=== PATIENT | male | born 1985 | race Caucasian/White ===

== ENCOUNTER 2017-11-03 05:22 | Day surgery (SDC) | payer MEDICAID, SELFPAY ==
[2017-11-03] VITALS (9 sets, daily range): BP systolic 105–133; BP diastolic 68–82; PULSE 55–72; RESP 16; TEMP 36.8–36.9; O2SAT 99–100
--- NOTE | 2017-11-03 06:01 | PCM.HP.STD ---
Problem List (1) Rectal bleeding Status: Acute History of Present Illness Date of Admission: 11/03/17 The patient is a 32 year old M who was evaluated in the office September 22, 2017. At that point he was referred because of an episode of rectal bleeding. [place] that he had a significant amount of bright red blood in the commode. He has had some concerns about possible previous hemorrhoidal problems. Occasional tenderness. Feeling of fullness. He denies any family or personal history of colon polyps or colon cancer. He has never had a previous colonoscopy. He is a long-term cigarette smoker and he continues to smoke. He has had intermittent chronic constipation. Past Medical History Medical History: Medical History (Last Updated 09/22/17 @ 14:02 by Mague Mcknight) Rectal bleeding (Acute) K62.5 Hemorrhoid K64.9 Allergies amoxicillin [Amoxicillin] Allergy (Verified 09/22/17 14:06) Rash Home Medications: Ambulatory Orders Medication Instructions Recorded NK [NK] 09/22/17 Surgical History: Surgical History (Last Updated 09/22/17 @ 14:03 by Mague Mcknight) history wisdom teeth removal Smoking Status: Current every day smoker Review of Systems Constitutional: Denies: Anorexia HEENT: Denies: Difficulty Swallowing Cardiovascular: Denies: Chest Pain Respiratory: Denies: Cough Gastrointestinal: Reports: Constipation. Denies: Abdominal Pain Genitourinary: Denies: Dysuria Endocrine: Reports: Change in Body Habitus - 20 pound intentional weight loss VTE Information - Inpt Only VTE Present on Admission: No - Physical Exam General: Alert, Oriented x3, Cooperative, No apparent distress HEENT: Atraumatic Oral: Moist Mucosa Lungs: Clear to auscultation Cardiovascular: Regular rate, Regular Rhythm Abdomen: Bowel Sounds Present, Soft, Non Tender, Non-Distended Extremities: No clubbing Skin: No rashes Neurological: Cranial nerves II-XII grossly intact Psych/Mental Status: Normal Affect Assessment/Plan All Active Problems (Last Updated 09/22/17 @ 14:02 by Mague Mcknight) Rectal bleeding (Acute) I have recommended the patient a colonoscopy with possible biopsy or polypectomy is indicated. He has had an opportunity to ask and have questions answered. We have scheduled and will proceed as noted. JOHNNA Moncada Dr, M.D., F.A.C.S.
--- NOTE | 2017-11-03 08:07 | NURSING ---
PT. REPORTS BROWN, LIQUID STOOL UPON ARRIVAL. DR. MEDEL NOTIFIED. ORDER RECEIVED TO GIVE TAP WATER ENEMA. 500CC'S TAP WATER ENEMA INSTILLED INTO RECTUM.
--- NOTE | 2017-11-03 08:18 | OP.PCM_ITS ---
Problem List (1) Rectal bleeding Status: Acute Report of Operation Date of Procedure: 11/03/17 Pre-Operative Diagnosis: Rectal bleeding Post-Operative Diagnosis: Grade 3 internal and external hemorrhoids Surgery/Procedure Performed:: Colonoscopy Description of Surgical Findings:: Timeout informed consent was obtained. 32-year-old gentleman was taken to the endoscopy suite. He was placed in a left lateral decubitus position. Throughout the procedure in aliquots patient received total 100 mg Demerol and 3 mg of Versed is intravenous sedation. Inspection revealed very swollen internal and external hemorrhoids particularly left lateral. They were protruding and cannot be completely reduced. Digital rectal exam demonstrated 1 + smooth prostate. No mass lesions. Flexible colonoscope inserted the rectum and advanced readily through the left colon and transverse colon. The patient was placed supine and with transabdominal pressure the scope was advanced to the cecum. The cecum and ileocecal valve area was nicely inspected. Bowel prep was good. The scope was carefully withdrawn from the ascending transverse descending and sigmoid colon without abnormality. The scope was retroflexed within the rectum the anorectal verge inspected hemorrhoidal changes again noted. No active bleeding. Excess fluid and air was aspirated free the procedure was completed with the patient tolerating it well. Impression Grade 3 to grade 4 internal and external hemorrhoids. Likely source of rectal bleeding. This was the patient's first colonoscopy. Next screening colonoscopy at age 52. Recommendations will be made to the patient to consider a surgical hemorrhoidectomy. Medications were given at 0755. The scope was inserted 0759. The cecum was reached at 0805. The procedure was completed at 0812. Cc: Dr. Verenice Wills M.D., F.A.C.S. Type of Anesthesia:: IV Sedation
== END 2017-11-03 09:15 | disposition home or self-care (01) ==
LOC: EN 05:22 → AC 05:24
PROVIDERS: Visit Provider Surgery
PROC: 0DJD8ZZ Inspection of Lower Intestinal Tract, Via Natural or Artificial Opening Endoscopic (ICD-10-PCS; CPT 45378; principal; 2017-11-03 06:25)
DX: K64.2 Third degree hemorrhoids (principal); F17.210 Nicotine dependence, cigarettes, uncomplicated
CPT/HCPCS: 45378; 99152; 99153; J7120

== ENCOUNTER 2018-06-02 15:20 | Emergency (ER) | payer MEDICAID, SELFPAY ==
[2018-05-11 14:17] VITALS: BMI 23.1
[2018-06-02 15:21] VITALS: BP 117/66; PULSE 73; RESP 15; TEMP 36.8; O2SAT 98; BMI 23.2
[2018-06-02] MEDS: Diphth,Pertuss(Acell),Tet Vac 0.5 ML Vial IM (16:22)
--- NOTE | 2018-06-02 16:28 | ED.VIS.LOWEX ---
History of Present Illness Chief Complaint: Wound Check Informant: Patient Occurred: Today Mechanism/Context: Injury, - - Puncture wound plantar surface foot, right great toe Onset: Today Associated Symptoms: Negative for: Parasthesia, Weakness, Loss of Funtion Tetanus Immunization: Unknown Prior similar symptoms: No Recent Illness/Hospitalization: No Past Medical History - Allergies and Home Meds Allergies/Adverse Reactions: Allergies amoxicillin [Amoxicillin] Allergy (Verified 06/02/18 15:24) Rash Primary Care Physician: Verenice Denis DO [Primary Care Provider] - Prior records reviewed: No Past Medical History: None Surgical History: no surgical history Lives: With Family Smoking Status: Current every day smoker Drugs: None Review of Systems Musculoskeletal: Reports: Extremity Pain - Right great toe pain secondary to puncture wound. Denies: Myalgias, Arthralgias, Neck pain, Back pain, Swelling Neurological: Denies: Weakness, Parasthesia, Numbness Hematologic: Denies: Easy bruising, Easy bleeding Allergy: Reports: Uticaria. Denies: Swelling of the mouth, Swelling of the tongue Physical Exam Vital Signs/Narrative: Vital Signs Temp Pulse Resp BP Pulse Ox 06/02/18 15:21 98.2 F 73 15 117/66 98 - Extremity Exam Right Ankle: Negative for: Abrasion, Contusion, Deformity, Edema, Hematoma, Limited ROM, - Right Foot: Negative for: Abrasion, Contusion, Deformity, Edema, Hematoma, Limited ROM, - Right Toe: - - Puncture wound plantar surface right great toe with retained foreign body.. Negative for: Abrasion, Contusion, Deformity, Edema, Hematoma, Limited ROM General: Well nourished, Well developed Head: Normocephalic, Atraumatic Eyes: Perrl, EOMI Cardiovascular: Regular rate, Regular rhythm, No murmurs Respiratory: No distress Skin: Normal color, No rash, Trauma - Puncture wound plantar surface right great toe with retained foreign body Neurological: Alert, Oriented x3, Cranial nerves II-XII grossly intact, Normal Strength, Normal Sensation Psychological: Normal affect Diagnostic/Tx/Re-eval - Medical Decision Making Puncture wound plantar surface right great toe with retained foreign body. Patient was informed this would need to be removed. Procedures Procedure(s): The right great toe was anesthetized by digital block. The area with retained foreign body was scored with removal of the foreign body. The cord area was irrigated. Because he reports urticaria with amoxicillin he was given clindamycin. He was instructed to follow-up with his primary care provider in 2 days for wound check. ED Disposition - Plan for ED Patient: Disposition: Home or Assisted Living Diagnosis: Puncture wound of foot with foreign body Instructions: ED Foreign Body Soft Tissue Removed Prescriptions: Clindamycin HCl [Cleocin] 300 mg PO Q6H #20 capsule Referrals: Verenice Denis DO [Primary Care Provider] - 2 Days for wound check Additional Instructions: If you are unable to be seen by your primary care provider in 2 days please return to the emergency Department for reevaluation. There is a small incidence of infection. Keep wound clean and dry. Wear white cotton socks.
[2018-06-02 16:41] VITALS: PULSE 68; RESP 17; O2SAT 97
[2018-06-02] MEDS: Clindamycin HCl 150 MG Capsule 300 MG PO (16:43)
== END 2018-06-02 16:51 | disposition home or self-care (01) ==
PROVIDERS: Emergency Provider Emergency Medicine
DX: S91.141A Puncture wound with foreign body of right great toe without damage to nail, initial encounter (principal); X58.XXXA Exposure to other specified factors, initial encounter; Y93.9 Activity, unspecified; Y92.9 Unspecified place or not applicable; F17.200 Nicotine dependence, unspecified, uncomplicated
CPT/HCPCS: 90715; 99283

== ENCOUNTER 2022-10-19 11:46 | Emergency (ER) | payer MEDICAID, SELFPAY ==
[2022-10-19 11:48] VITALS: BP 121/73; PULSE 73; RESP 14; TEMP 36.3; O2SAT 100; BMI 23.7
--- NOTE | 2022-10-19 12:07 | RAD_ITS ---
HISTORY: FB. TECHNIQUE: XR Chest 1 View. COMPARISON: None. FINDINGS: CARDIOMEDIASTINAL BORDERS: Cardiac silhouette within normal limits in size. Mediastinal contour unremarkable. LUNGS: Radiographically clear. No metallic foreign body identified. PLEURA: No pleural effusion or pneumothorax seen. OSSEOUS STRUCTURES: Unremarkable. RAD/Chest 1 View IMPRESSION: No acute cardiopulmonary process identified. No metallic foreign body identified. Electronically Signed: Geetha Jacques MD at 12:43 EDT ,
--- NOTE | 2022-10-19 12:08 | EX.ED.DYSGE1 ---
HPI History of Present Illness Chief Complaint: Foreign Body Informant: patient Narrative Narrative: Patient presents secondary to concerns he may have swallowed a nail. He states that he was eating just prior to arrival. He bit into something that was a little hard but did not think much of it. A few bites later he bit into something hard again. He spit it out and noticed a small finishing nail that had fallen into the dove while he was cooking. He is now unsure if the first incident may have been another nail that he swallowed. He denies throat tightness or abdominal pain. [facility] History Anxiety Blood in stool Constipation Hemorrhoid Rectal bleeding Home Medications clindamycin HCl 300 mg capsule (Cleocin HCl) 300 mg PO Q6H ##20 06/02/18 [Rx Last Taken Unknown] Allergy/AdvReac Type Severity Reaction Status Date / Time amoxicillin [Amoxicillin] Allergy Rash Verified 10/19/22 11:49 Family History Mother Breast cancer Grandfather Diabetes Hypertension Heart disease CVA (cerebral vascular accident) Surgical History history wisdom teeth removal Hx of colonoscopy Social History Smoking Status: Current some day smoker tobacco type: cigarettes second hand exposure: Yes alcohol intake: current alcohol intake frequency: a few times a week substance use type: does not use caffeine: Yes frequency: 1-2 times per week ROS ROS ED Constitutional Constitutional ED: Denies chills or fever(s) Eyes Eyes: Denies change in vision ENT ENT ED: Denies sore throat Cardiovascular Cardiovascular: Denies chest pain Respiratory/Chest Respiratory/Chest: Denies cough or dyspnea Gastrointestinal Gastrointestinal: Denies abdominal pain, nausea or vomiting Musculoskeletal Musculoskeletal: Denies back pain or extremity pain Integumentary Denies Abrasions or rash Neurologic Neurologic: Denies headache(s) or weakness Psychiatric Psychiatric: Reports anxiety Allergic/Immunologic Allergic/Immunologic ED: Denies lip swelling or urticaria EXAM Physical Exam Const Vital Signs: 10/19/22 11:48 08/30/23 11:47 Temperature 97.4 F L Temperature Source Temporal Pulse Rate 73 Respiratory Rate 14 Respiratory Pattern Normal Blood Pressure 121/73 H Blood Pressure Mean 89 Pulse Ox 100 Oxygen Delivery Method Room Air Positive well nourished and well developed General Appearance ED: well developed HEENT Reports normocephalic and head/scalp atraumatic Eyes PERRL and EOMs intact bilaterally Neck supple Chest Wall inspection of chest normal and palpation of chest normal Resp normal respiratory effort and clear to auscultation bilaterally Cardio regular rate and regular rhythm GI normal to inspection, nondistended, normoactive bowel sounds Palpation: soft Extremity normal to inspection Neuro oriented x3 and no sensory deficits noted Sensorium / Orientation: alert Motor Exam: strength 5/5 throughout Psych mental status grossly normal Skin no rashes or lesions noted MDM MDM MDM Narrative Medical decision making narrative: X-rays of the chest and abdomen obtained to evaluate for possible foreign body. Treatment and Re-Evaluation :: Chest x-ray and abdominal x-ray reviewed by myself. I see no evidence of radiopaque foreign body. Patient will be discharged with return instructions. Discharge Plan Triage Chief Complaint: Foreign Body ED Provider: Jyotsna Velazquez Dx/Rx/DC Orders Clinical Impression: Medical condition not demonstrated Prescriptions: No Action clindamycin HCl [Cleocin HCl] 300 MG capsule 300 mg PO Q6H Qty: 20 0RF Primary Care Provider: Verenice Denis Referrals: Verenice Denis DO [Primary Care Provider] - Activity Restrictions/Additional Instructions: As discussed, your x-rays reveal no evidence of metallic foreign body. Disposition Disposition: Home, Self Care
--- NOTE | 2022-10-19 12:14 | RAD_ITS ---
HISTORY: FB. TECHNIQUE: XR Abdomen 1 View. COMPARISON: None. FINDINGS: BOWEL GAS PATTERN: No metallic foreign body identified. No dilated bowel loops identified. FREE AIR: None seen on upright view. CALCIFICATIONS: No abnormal calcifications observed. BONES: Unremarkable. RAD/Abdomen Single View IMPRESSION: No metallic foreign body identified. Electronically Signed: Geetha Jacques MD at 12:45 EDT ,
== END 2022-10-19 12:49 | disposition home or self-care (01) ==
PROVIDERS: Emergency Provider Emergency Medicine; Visit Provider Emergency Medicine
DX: Z03.89 Encounter for observation for other suspected diseases and conditions ruled out (principal); F17.210 Nicotine dependence, cigarettes, uncomplicated
CPT/HCPCS: 71045; 74018; 99282